=== PATIENT | female | born 1975 | race Caucasian/White ===

== ENCOUNTER 2018-05-31 22:18 | Emergency (ER) | payer BC ==
[~2018-05-31] VITALS: Ht 172.7 cm; Wt 129.3 kg
[2018-05-31 22:20] VITALS: BP_SYST 133
== END 2018-05-31 23:07 | disposition home or self-care (01) ==
LOC: SED 22:18
DX: I48.91 Unspecified atrial fibrillation (principal); R00.2 Palpitations; F41.9 Anxiety disorder, unspecified; I10 Essential (primary) hypertension; Z90.49 Acquired absence of other specified parts of digestive tract
CPT/HCPCS: 93005; 99283